=== PATIENT | female | born 1975 | race Caucasian/White ===

== ENCOUNTER 2016-09-13 15:32 | Emergency (ER) | payer MEDICAID ==
[~2016-09-13] VITALS: Ht 165.1 cm; Wt 61.0 kg
[2016-09-13] MEDS ORDERED: LIDOCAINE HCL 1% 20ML VIAL (Pyxis) INJ INFIL ONE (16:00)
[2016-09-13] MEDS ORDERED: LORAZEPAM 2MG/ML CPJ IV ONE (16:00)
[2016-09-13] MEDS ORDERED: SODIUM CHLORIDE 0.9% 1,000 ML IV ONE (16:00)
[2016-09-13 16:15] LABS: BASOPHILS % 0.4 % (0.0-2.0); EOSINOPHILS % 0.6 % (0.0-5.0); HEMATOCRIT. 34.5 % (36.0-48.0); HEMOGLOBIN. 11.3 g/dL (12.0-16.0); LYMPHOCYTES % 17.4 % (20.0-50.0); MEAN CORPUSCULAR HEMOGLOBIN 26.4 pg (28.0-32.0); MEAN CORPUSCULAR VOLUME 80.6 fL (81.0-99.0); MEAN PLATELET VOLUME 8.4 fl (7.4-10.4); NEUTROPHILS % 71.6 % (40.0-76.0); PLATELET 306 x1000/uL (130-400); RED BLOOD CELL COUNT 4.29 mill/uL (4.2-5.4); RED CELL DISTRIBUTION WIDTH 17.1 % (11.6-14.6)
[2016-09-13 16:21] LABS: CARBON DIOXIDE 20 mEq/L (21-32); CHLORIDE 108 mEq/L (98-107)
[2016-09-13 21:29] LABS: CLARITY URINE CLOUDY (CLEAR); COLOR URINE YELLOW (YELLOW); GLUCOSE URINE NEGATIVE (NEGATIVE); KETONES URINE TRACE (NEGATIVE); LEUKOCYTE ESTERASE URINE 2+ (NEGATIVE); NITRITE URINE NEGATIVE (NEGATIVE); OCCULT BLOOD URINE 1+ (NEGATIVE); PH URINE 6.5 (4.5-8.0); PROTEIN URINE 1+ (NEGATIVE); SPECIFIC GRAVITY URINE 1.017 (1.005-1.030); UROBILINOGEN URINE 0.2 E.U./dL (0.2-1.0)
[2016-09-13 22:09] LABS: *AMPHETAMINES SCREEN URINE NEGATIVE (NEGATIVE); *BARBITURATES SCREEN URINE NEGATIVE (NEGATIVE); CANNABINOID URINE SCREEN NEGATIVE (NEGATIVE); METHADONE URINE SCREEN NEGATIVE (NEGATIVE); OPIATES URINE SCREEN NEGATIVE (NEGATIVE); PHENCYCLIDINE URINE SCREEN NEGATIVE (NEGATIVE)
[2016-09-13 22:12] LABS: *BENZODIAZEPINES SCREEN URINE PRESUMTIVE POSITIVE (NEGATIVE); *COCAINE SCREEN URINE NEGATIVE (NEGATIVE)
[2016-09-14] MEDS ORDERED: SODIUM CHLORIDE 0.9% 1,000 ML IV ONE (00:15)
[2016-09-14] MEDS ORDERED: NITROFURANTOIN 100MG M/M CAPSULE PO SCH (09:00)
[2016-09-14 09:35] VITALS: BP 120/78
== END 2016-09-14 10:00 | disposition home or self-care (01) ==
LOC: ER 15:49
DX: T42.4X1A Poisoning by benzodiazepines, accidental (unintentional), initial encounter (principal); F23 Brief psychotic disorder; S30.851A Superficial foreign body of abdominal wall, initial encounter; F41.9 Anxiety disorder, unspecified; E86.0 Dehydration; R41.82 Altered mental status, unspecified; E87.6 Hypokalemia; E78.1 Pure hyperglyceridemia; D50.9 Iron deficiency anemia, unspecified; Y35.893A Legal intervention involving other specified means, suspect injured, initial encounter; Y93.89 Activity, other specified; Y92.488 Other paved roadways as the place of occurrence of the external cause
CPT/HCPCS: 20520; 36415; 70450; 71010; 80053; 80305; 81001; 85025; 93005; 99285; J2060; J3490; Z7610; J7030; A4315

== ENCOUNTER 2016-09-15 03:56 | Emergency (ER) | payer MEDICAID ==
[~2016-09-15] VITALS: Ht 152.4 cm; Wt 91.0 kg
[2016-09-15] MEDS ORDERED: ZIPRASIDONE MESYLATE 20MG/VIAL IM ONE (05:15)
[2016-09-15] MEDS ORDERED: DIPHENHYDRAMINE 50MG/ML VIAL IM ONE (05:15)
[2016-09-15 06:50] LABS: BASOPHILS % 0.6 % (0.0-2.0); EOSINOPHILS % 0.9 % (0.0-5.0); HEMATOCRIT. 31.6 % (36.0-48.0); HEMOGLOBIN. 10.6 g/dL (12.0-16.0); LYMPHOCYTES % 18.2 % (20.0-50.0); MEAN CORPUSCULAR HEMOGLOBIN 26.9 pg (28.0-32.0); MEAN CORPUSCULAR VOLUME 80.3 fL (81.0-99.0); MEAN PLATELET VOLUME 8.1 fl (7.4-10.4); MONOCYTES % 9.7 % (2.0-8.0); NEUTROPHILS % 70.6 % (40.0-76.0); PLATELET 261 x1000/uL (130-400); RED BLOOD CELL COUNT 3.94 mill/uL (4.2-5.4); RED CELL DISTRIBUTION WIDTH 16.8 % (11.6-14.6)
[2016-09-15 07:03] LABS: CARBON DIOXIDE 23 mEq/L (21-32); CHLORIDE 111 mEq/L (98-107); ETHANOL BLOOD < 10 mg/dL
[2016-09-15 07:29] LABS: *AMPHETAMINES SCREEN URINE NEGATIVE (NEGATIVE); *BARBITURATES SCREEN URINE NEGATIVE (NEGATIVE); *BENZODIAZEPINES SCREEN URINE NEGATIVE (NEGATIVE); *COCAINE SCREEN URINE NEGATIVE (NEGATIVE); CANNABINOID URINE SCREEN NEGATIVE (NEGATIVE); METHADONE URINE SCREEN NEGATIVE (NEGATIVE); OPIATES URINE SCREEN NEGATIVE (NEGATIVE); PHENCYCLIDINE URINE SCREEN NEGATIVE (NEGATIVE)
[2016-09-15] MEDS ORDERED: LORAZEPAM 2MG/ML CPJ IM STA ×2 (08:16→09:11)
[2016-09-15] MEDS ORDERED: OLANZAPINE 10 MG/VIAL IM ONE ×2 (08:30→20:45)
[2016-09-15 09:07] LABS: HCG SCREEN NEGATIVE
[2016-09-15] MEDS ORDERED: LORAZEPAM 2MG/ML CPJ IM ONE (20:45)
[2016-09-16] MEDS ORDERED: OLANZAPINE 10 MG/VIAL IM ONE ×2 (01:15→08:45)
[2016-09-16] MEDS ORDERED: LORAZEPAM 2MG/ML CPJ IM ONE (01:15)
[2016-09-16] MEDS ORDERED: POTASSIUM CHLORIDE 20MEQ TABLET SR PO ONE (15:00)
[2016-09-16] MEDS: LORAZEPAM 2MG/ML CPJ IM PRN (15:27)
[2016-09-17] MEDS: LORAZEPAM 2MG/ML CPJ IM PRN (01:13)
[2016-09-17 18:32] VITALS: BP 112/64
== END 2016-09-17 19:18 | disposition home or self-care (01) ==
LOC: ER 03:56
DX: F20.9 Schizophrenia, unspecified (principal)
CPT/HCPCS: 36415; 80048; 80305; 80307; 80329; 84703; 85025; 96372; 99284; G0482; J1200; J2060; J3486; J3490; Z7610

== ENCOUNTER 2018-11-06 20:58 | Emergency (ER) | payer MEDICAID ==
[~2018-11-06] VITALS: Ht 162.6 cm; Wt 60.0 kg
[2018-11-06] MEDS ORDERED: LORAZEPAM 2MG/ML CPJ IM ONE (22:15)
[2018-11-06] MEDS ORDERED: OLANZAPINE 10 MG/VIAL IM ONE (22:15)
[2018-11-06 23:08] LABS: BASOPHILS % 0.3 % (0.0-2.0); HEMATOCRIT. 34.9 % (36.0-48.0); HEMOGLOBIN. 11.2 g/dL (12.0-16.0); MEAN CORPUSCULAR HEMOGLOBIN 25.7 pg (28.0-32.0); MEAN PLATELET VOLUME 7.6 fl (7.4-10.4); MONOCYTES % 6.8 % (2.0-8.0); NEUTROPHILS % 84.9 % (40.0-76.0); PLATELET 386 x1000/uL (130-400); RED BLOOD CELL COUNT 4.37 mill/uL (4.2-5.4); RED CELL DISTRIBUTION WIDTH 20.8 % (11.6-14.6)
[2018-11-06 23:11] LABS: CHLORIDE 111 mEq/L (98-107)
[2018-11-06 23:14] LABS: HCG SCREEN NEGATIVE
[2018-11-06 23:15] LABS: ETHANOL BLOOD < 10 mg/dL
[2018-11-06] MEDS ORDERED: SODIUM CHLORIDE 0.9% 1,000 ML IV ONE (23:24)
[2018-11-06] MEDS ORDERED: POTASSIUM CHLORIDE 20MEQ TABLET SR PO ONE (23:30)
[2018-11-06 23:41] LABS: CLARITY URINE CLOUDY (CLEAR); COLOR URINE RED (YELLOW); KETONES URINE 1+ (NEGATIVE); LEUKOCYTE ESTERASE URINE 3+ (NEGATIVE); NITRITE URINE NEGATIVE (NEGATIVE); OCCULT BLOOD URINE 3+ (NEGATIVE); PH URINE 6.5 (4.5-8.0); PROTEIN URINE 2+ (NEGATIVE); UROBILINOGEN URINE 0.2 E.U./dL (0.2-1.0)
[2018-11-07] MEDS ORDERED: CEFTRIAXONE 2 G PREMIX 50 ML IV ONE
[2018-11-07] MEDS ORDERED: LEVOFLOXACIN 500MG TABLET PO ONE (00:15)
[2018-11-07 00:18] LABS: *BARBITURATES SCREEN URINE NEGATIVE (NEGATIVE); *BENZODIAZEPINES SCREEN URINE NEGATIVE (NEGATIVE); *COCAINE SCREEN URINE NEGATIVE (NEGATIVE); CANNABINOID URINE SCREEN NEGATIVE (NEGATIVE); METHADONE URINE SCREEN NEGATIVE (NEGATIVE); OPIATES URINE SCREEN NEGATIVE (NEGATIVE); PHENCYCLIDINE URINE SCREEN NEGATIVE (NEGATIVE)
[2018-11-07 00:19] LABS: *AMPHETAMINES SCREEN URINE NEGATIVE (NEGATIVE)
[2018-11-07] MEDS ORDERED: LORAZEPAM 2MG/ML CPJ IM NR (02:45)
[2018-11-07] MEDS ORDERED: LORAZEPAM 2MG/ML CPJ IM ONE ×2 (10:15→17:15)
[2018-11-07] MEDS ORDERED: HALOPERIDOL LACTATE 5MG/ML VIAL IM ONE ×2 (10:15→17:15)
[2018-11-07] MEDS ORDERED: DIPHENHYDRAMINE 50MG/ML VIAL IM ONE (17:15)
[2018-11-09] MEDS ORDERED: LEVOFLOXACIN 500MG TABLET PO ONE (07:00)
[2018-11-09 14:49] VITALS: BP 134/82
== END 2018-11-09 20:26 ==
LOC: ER 20:58
DX: F23 Brief psychotic disorder (principal); S00.83XA Contusion of other part of head, initial encounter; N39.0 Urinary tract infection, site not specified; F91.8 Other conduct disorders; R45.850 Homicidal ideations; Z75.1 Person awaiting admission to adequate facility elsewhere; W01.0XXA Fall on same level from slipping, tripping and stumbling without subsequent striking against object, initial encounter; Y93.89 Activity, other specified; Y92.018 Other place in single-family (private) house as the place of occurrence of the external cause
CPT/HCPCS: 36415; 70450; 70486; 80053; 80305; 80307; 80320; 80329; 81003; 84703; 85025; 87086; 96365; 96366; 96372; 99284; J0696; J1200; J1630; J2060; J3490; J7030; G0480

== ENCOUNTER 2020-12-26 09:18 | Emergency (ER) | payer MEDICAID ==
[~2020-12-26] VITALS: Ht 157.5 cm; Wt 68.0 kg
[2020-12-26] MEDS ORDERED: DIPHENHYDRAMINE 50MG/ML VIAL IM STA (09:55)
[2020-12-26] MEDS ORDERED: LORAZEPAM 2MG/ML CPJ IM STA (09:55)
[2020-12-26] MEDS ORDERED: HALOPERIDOL LACTATE 5MG/ML VIAL IM STA (09:55)
[2020-12-26] MEDS ORDERED: LORAZEPAM 2MG/ML CPJ IV ONE (10:45)
[2020-12-26 11:38] LABS: BASOPHILS % 0.7 % (0.0-2.0); EOSINOPHILS % 0.7 % (0.0-5.0); HEMATOCRIT. 36.9 % (36.0-48.0); HEMOGLOBIN. 11.7 g/dL (12.0-16.0); LYMPHOCYTES % 25.5 % (20.0-50.0); MEAN CORPUSCULAR HEMOGLOBIN 24.2 pg (28.0-32.0); MEAN PLATELET VOLUME 8.2 fl (7.4-10.4); MONOCYTES % 6.3 % (2.0-8.0); NEUTROPHILS % 66.8 % (40.0-76.0); PLATELET 348 x1000/uL (130-400); RED BLOOD CELL COUNT 4.85 mill/uL (4.2-5.4); RED CELL DISTRIBUTION WIDTH 19.9 % (11.6-14.6)
[2020-12-26 11:42] LABS: CHLORIDE 109 mEq/L (98-107)
[2020-12-26 11:47] LABS: ETHANOL BLOOD < 10 mg/dL
[2020-12-26 12:00] LABS: CLARITY URINE CLEAR (CLEAR); COLOR URINE YELLOW (YELLOW); KETONES URINE NEGATIVE (NEGATIVE); LEUKOCYTE ESTERASE URINE NEGATIVE (NEGATIVE); NITRITE URINE NEGATIVE (NEGATIVE); OCCULT BLOOD URINE NEGATIVE (NEGATIVE); PH URINE 7.5 (4.5-8.0); PROTEIN URINE NEGATIVE (NEGATIVE); SPECIFIC GRAVITY URINE 1.012 (1.005-1.030); UROBILINOGEN URINE 0.2 E.U./dL (0.2-1.0)
[2020-12-26 12:27] LABS: *AMPHETAMINES SCREEN URINE NEGATIVE (NEGATIVE); *BARBITURATES SCREEN URINE NEGATIVE (NEGATIVE); *BENZODIAZEPINES SCREEN URINE NEGATIVE (NEGATIVE); CANNABINOID URINE SCREEN NEGATIVE (NEGATIVE); METHADONE URINE SCREEN NEGATIVE (NEGATIVE); OPIATES URINE SCREEN NEGATIVE (NEGATIVE); PHENCYCLIDINE URINE SCREEN NEGATIVE (NEGATIVE)
[2020-12-26 12:28] LABS: *COCAINE SCREEN URINE NEGATIVE (NEGATIVE)
[2020-12-27 06:26] VITALS: BP 118/75
== END 2020-12-27 06:29 | disposition home or self-care (01) ==
LOC: ER 09:18
DX: F20.9 Schizophrenia, unspecified (principal); R45.1 Restlessness and agitation; R94.31 Abnormal electrocardiogram [ECG] [EKG]; Z91.14 Patient's other noncompliance with medication regimen
CPT/HCPCS: 36415; 80053; 80305; 80307; 80320; 80329; 81003; 85025; 93005; 96372; 99285; J1200; J1630; J2060; Z7610; G0480

== ENCOUNTER 2021-07-31 11:15 | Emergency (ER) | payer MEDICAID ==
[~2021-07-31] VITALS: Ht 152.4 cm; Wt 63.0 kg
[2021-07-31 11:30] VITALS: BP 107/79
== END 2021-07-31 12:59 | disposition left against medical advice (07) ==
LOC: ER 11:15
DX: L02.415 Cutaneous abscess of right lower limb (principal); I10 Essential (primary) hypertension; F31.9 Bipolar disorder, unspecified; Z86.59 Personal history of other mental and behavioral disorders
CPT/HCPCS: 73562; 99283